=== PATIENT | female | born 1945 | race Asian ===

== ENCOUNTER 2020-09-07 15:43 | Emergency (ER) | payer MEDICARE, OTHER ==
[~2020-09-07] VITALS: Ht 149.9 cm; Wt 50.0 kg
[2020-09-07 15:46] VITALS: BP 141/89
[2020-09-07] MEDS ORDERED: LOSA1TAB40 PO (16:03)
[2020-09-07] MEDS ORDERED: AMLO5TAB66 PO (16:03)
[2020-09-07] MEDS ORDERED: POTA20TA83 PO (16:03)
[2020-09-07] MEDS ORDERED: METH2.5T6 PO (16:03)
[2020-09-07] MEDS ORDERED: HYDR200T4 PO (16:03)
== END 2020-09-07 16:38 | disposition left against medical advice (07) ==
LOC: EMS 15:43
DX: Z11.59 Encounter for screening for other viral diseases (principal); Z53.21 Procedure and treatment not carried out due to patient leaving prior to being seen by health care provider